=== PATIENT | female | born 1985 | race Two or more races ===

== ENCOUNTER 2020-02-10 14:17 | Emergency (ER) | payer BC ==
[2020-02-10 15:28] LABS: ABSOLUTE EOSINOPHILS # (AUTO) 0.2 10^3/uL (0.0-0.6); ABSOLUTE LYMPHOCYTES (AUTO) 2.5 10^3/uL (0.5-4.7); ABSOLUTE MONOCYTES (AUTO) 0.5 10^3/uL (0.1-1.4); ABSOLUTE NEUT (AUTO) 4.8 10^3/uL (1.7-8.2); BASOPHILS % (AUTO) 0.4 % (0-2); EOSINOPHILS % (AUTO) 2.2 % (0-6); HEMATOCRIT 38.2 % (36.0-47.0); HEMOGLOBIN 12.9 g/dL (12.0-15.5); LYMPHOCYTES % (AUTO) 31.9 % (13-45); MEAN CORPUSCULAR HEMOGLOBIN 30.6 pg (27.0-33.4); MEAN CORPUSCULAR HGB CONC 33.9 g/dL (32.0-36.0); MEAN CORPUSCULAR VOLUME 90 fl (80-97); MONOCYTES % (AUTO) 5.7 % (3-13); PLATELET COUNT 282 10^3/uL (150-450); RED BLOOD COUNT 4.23 10^6/uL (3.72-5.28); RED CELL DISTRIBUTION WIDTH 13.9 % (11.5-14.0); SEGMENTED NEUTROPHILS % (AUTO) 59.8 % (42-78); TOTAL CELLS COUNTED % (AUTO) 100 %
--- NOTE | 2020-02-10 15:35 | ER Document Report ---
ED Extremity Problem, Lower - General Chief Complaint: Leg Pain Stated Complaint: LEG PAIN Time Seen by Provider: 02/10/20 14:35 Notes: 34-year-old female arrives at the emergency department complaining of left leg pain and swelling. Patient is just drove in from [place] this weekend. She is concerned about a blood clot. Stated her mother of a blood clot. Patient denies shortness of breath denies chest pain. Complains of aching burning pain in her leg stated she had just lost a lot of weight and did have varicose veins at the time. The patient denies any redness or heat in the area. No fever no chills. Denies any issues with sores or wounds. No trauma. Denies any abdominal pain. No hematuria or dysuria. Does nights with hemoptysis or gland swelling. - Related Data Allergies/Adverse Reactions: acetaminophen [From Vicodin] Allergy (Verified 02/10/20 14:47) cephalexin Allergy (Verified 02/10/20 14:47) fexofenadine [From Violeta] Allergy (Verified 02/10/20 14:47) hydrocodone [From Vicodin] Allergy (Verified 02/10/20 14:47) Past Medical History - Social History Smoking Status: Never Smoker Frequency of alcohol use: Occasional Drug Abuse: None Family History: None Patient has homicidal ideation: No Pulmonary Medical History: Reports: Hx Asthma Review of Systems - Review of Systems Constitutional: denies: Chills, Fever EENT: No symptoms reported Cardiovascular: No symptoms reported. denies: Chest pain Respiratory: denies: Short of breath Musculoskeletal: Leg swelling Skin: Other - Pain and swelling around varicose veins on left leg -: Yes All other systems reviewed and negative Physical Exam - Vital signs Vitals: Temp 98.3 F 02/10/20 14:42 - Notes Notes: GENERAL_APPEARANCE: well_nourished, alert, cooperative, appears uncomfortable VITALS: reviewed, see vital signs table. HEAD: no_swelling\tenderness on the head. EYES: Sclera anicteric, conjunctiva_clear. NOSE: no_nasal_discharge. MOUTH: (-)decreased moisture. THROAT: no_tonsilar_inflammation, no_airway_obstruction. no_lymphadenopathy NECK: supple, no_neck_tenderness, (-)thyromegaly. BACK: no_back_tenderness. EXTREMITIES: Varicose veins on the lateral surface just below the knee which are irritated slightly warm to touch. No redness no fluctuance. The calf itself is nontender. There is good dorsalis pedis posterior tibial pulses distal. Brisk cap refill to pedal nailbeds. SKIN: warm, dry, good_color, no_rash. MENTAL_STATUS: speech_clear, oriented_X_3, normal_affect, responds_appropriately to questions. Course - Re-evaluation Re-evalutation: 02/10/20 15:34 34-year-old female who just drove in from [place] over the weekend. There is a family history of blood clots but no bleeding or clotting disorders to her knowledge. No history of any trauma. No recent hospitalizations no recent surgeries. Patient denies hormone replacement denies smoking. The patient will have a ultrasound done of her leg. This looks to be more superficial phlebitis due to varicose veins. Doppler to rule out DVT 02/10/20 17:28 Pleura is negative. Likely to some mild phlebitis due to her varicose veins and inflammation. Will place on cephalexin she already has naproxen. Spoke with her about warm compresses and follow-up with primary care. I given her strong pulses distal. Good dorsalis pedis posterior tibial pulses brisk capillary refill no change in temperature compared to the contralateral limb. Nothing to suggest arterial occlusion. DVT is negative on the scan. No redness or heat or anything to suggest cellulitis or abscess. - Vital Signs Vital signs: Temp Pulse Resp BP Pulse Ox 98.3 F 68 16 112/77 100 02/10/20 14:46 02/10/20 14:46 02/10/20 14:46 02/10/20 14:46 02/10/20 14:46 - Laboratory Result Diagrams: 02/10/20 15:14 02/10/20 15:14 Laboratory results interpreted by me: 02/10/20 15:14 Sodium 134.9 L Discharge - Discharge Clinical Impression: Phlebitis Condition: Good Disposition: HOME, SELF-CARE Instructions: Superficial Phlebitis ([facility]) Prescriptions: Sulfamethoxazole/Trimethoprim [Bactrim Ds Tablet] 1 each PO BID #14 tablet
[2020-02-10 15:37] LABS: INTERNATIONAL RATION (INR) 0.98
[2020-02-10 15:38] LABS: PARTIAL THROMBOPLASTIN TIME 25.6 SEC (23.5-35.8)
[2020-02-10 15:52] LABS: ANION GAP 8 (5-19); BLOOD UREA NITROGEN 11 mg/dL (7-20); CALCIUM 9.4 mg/dL (8.4-10.2); CARBON DIOXIDE 27 mmol/L (22-30); CHLORIDE 100 mmol/L (98-107); GLUCOSE 78 mg/dL (75-110); POTASSIUM 4.3 mmol/L (3.6-5.0)
--- NOTE | 2020-02-10 17:04 | RADIOLOGY REPORT (SQ) ---
EXAM DESCRIPTION: VENOUS UNILATERAL LOWER IMAGES COMPLETED DATE/TIME: 02/10/2020 4:54 pm REASON FOR STUDY: Left leg swelling COMPARISON: None. TECHNIQUE: Dynamic and static velasco scale and color images acquired of both lower extremity venous sy stems. Selected spectral images acquired with additional compression and augmentation maneuvers. Imag es stored on PACS. LIMITATIONS: None. FINDINGS: RIGHT LEG COMMON FEMORAL AND FEMORAL: Normal phasicity, compression and augmentation. No visualized echogenic m aterial on velasco scale. No defects on color images. POPLITEAL: Normal compression and augmentation. No visualized echogenic material on velasco scale. No de fects on color images. CALF VESSELS: Normal compression and augmentation. No visualized echogenic material on velasco scale. No defects on color image. GSV AND SSV: Normal compression. No visualized echogenic material on velasco scale. No defects on color images. ANY DEEP VENOUS INSUFFICIENCY: Not evaluated. ANY EVIDENCE OF POPLITEAL CYST: No. OTHER: No other significant finding. LEFT LEG COMMON FEMORAL AND FEMORAL: Normal phasicity, compression and augmentation. No visualized echogenic m aterial on velasco scale. No defects on color images. POPLITEAL: Normal compression and augmentation. No visualized echogenic material on velasco scale. No de fects on color images. CALF VESSELS: Normal compression and augmentation. No visualized echogenic material on velasco scale. No defects on color images. GSV AND SSV: Normal compression. No visualized echogenic material on velasco scale. No defects on color images. ANY DEEP VENOUS INSUFFICIENCY: Not evaluated. ANY EVIDENCE POPLITEAL CYST: No. OTHER: No other significant finding. IMPRESSION: NO EVIDENCE DVT OR SVT IN EITHER LEG. TECHNICAL DOCUMENTATION: JOB ID: [id number] [employer]- All Rights Reserved Reading location - IP/workstation name: [email or web address]
[2020-02-10 18:01] VITALS: BP 112/69
== END 2020-02-10 18:00 | disposition home or self-care (01) ==
LOC: ER 14:17
DX: I80.9 Phlebitis and thrombophlebitis of unspecified site (principal); M79.605 Pain in left leg; M79.89 Other specified soft tissue disorders; Z88.8 Allergy status to other drugs, medicaments and biological substances
CPT/HCPCS: 36415; 80048; 85025; 85610; 85730; 93971; 99283

== ENCOUNTER 2020-02-16 21:00 | Emergency (ER) | payer BC ==
--- NOTE | 2020-02-16 21:09 | ER Document Report ---
ED Medical Screen (RME) - General Stated Complaint: POSSIBLE BLOOD CLOT Time Seen by Provider: 02/16/20 21:05 Mode of Arrival: Ambulatory Information source: Patient Notes: 34-year-old female patient presents the emergency department concern for possible DVT. Patient has no history of DVT. She did drive a [address] last week. She states she started having pain behind her left knee after that with some redness and swelling as well. She was seen here on 02/09 and had a negative venous Doppler ultrasound. Patient reports the pain and swelling have worsened so she wanted to get checked out again. Patient denies any chest pain or shortness of breath. I have greeted and performed a rapid initial assessment of this patient. A comprehensive ED assessment and evaluation of the patient, analysis of test res ults and completion of the medical decision making process will be conducted by additional ED providers. I have specifically instructed the patient or family members with the patient to immediately return to any nursing staff should anything change in the patient's condition or with their chief complaint. - Related Data Allergies/Adverse Reactions: acetaminophen [From Vicodin] Allergy (Verified 02/10/20 14:47) cephalexin Allergy (Verified 02/10/20 14:47) fexofenadine [From Violeta] Allergy (Verified 02/10/20 14:47) hydrocodone [From Vicodin] Allergy (Verified 02/10/20 14:47) Past Medical History Pulmonary Medical History: Reports: Hx Asthma
--- NOTE | 2020-02-16 22:41 | RADIOLOGY REPORT (SQ) ---
EXAM DESCRIPTION: ULTRASOUND- left lower extremity venous Doppler ultrasound CLINICAL HISTORY: Left lower extremity pain and swelling. COMPARISON: February 10, 2020. TECHNIQUE: Escalante scale, color and Doppler sonographic evaluation of the left lower extremity was performed. FINDINGS: Left: There is no evidence of acute/chronic deep venous thrombosis in the left common femoral through proximal calf veins, including the popliteal, peroneal, posterior tibial veins and left greater saphenous vein/common femoral vein junction. Normal color/phasic flow, augmentation, compressibility and lack of filling defects, is demonstrated in these visualized vessels. However, there is evidence of superficial venous thrombosis with noncompressive vasculature in the region of the lateral leg both rostral and caudal to the level of the knee. IMPRESSION: 1. No evidence of deep vein thrombosis in the left lower extremity. 2. Evidence of superficial venous thrombosis involving the left lateral leg.
--- NOTE | 2020-02-16 22:41 | ER Document Report ---
ED Extremity Problem, Lower - General Chief Complaint: Leg Pain Stated Complaint: POSSIBLE BLOOD CLOT Time Seen by Provider: 02/16/20 21:05 Primary Care Provider: MARTI KENYON MD [ACTIVE STAFF] - Follow up in 3-5 days Mode of Arrival: Ambulatory Notes: Patient is a 34-year-old female that comes emergency department for chief complaint of pain to the left outer posterior aspect of the leg at the top of the calf and behind the knee. She states that she had a 14-hour trip in a car from [place] on 02/06/2020, she was seen here after she developed symptoms on 02/06 and she was diagnosed with phlebitis, treated with Bactrim and has been taking naproxen. She states it was red, irritated, and more painful previously and this has significantly improved with resolution of the redness, however the area is refining still operator, seems longer, and she felt a tingling sensation in her leg earlier today that made her concerned. She denies any current numbness. She denies any back injury or symptoms with her back. Patient is on oral contraceptive. She does not smoke, denies history of DVT. She states her grandmother from a pulmonary embolism, she has no primary family members with PE. She takes no daily medications. She denies any other complaints. - Related Data Allergies/Adverse Reactions: acetaminophen [From Vicodin] Allergy (Verified 02/10/20 14:47) cephalexin Allergy (Verified 02/10/20 14:47) fexofenadine [From Violeta] Allergy (Verified 02/10/20 14:47) hydrocodone [From Vicodin] Allergy (Verified 02/10/20 14:47) Past Medical History - General Information source: Patient - Social History Smoking Status: Never Smoker Frequency of alcohol use: None Drug Abuse: None Lives with: Family Family History: None Patient has homicidal ideation: No Pulmonary Medical History: Reports: Hx Asthma Past Surgical History: Reports: Hx Breast Surgery - Immunizations Immunizations up to date: Yes Hx Diphtheria, Pertussis, Tetanus Vaccination: Yes Review of Systems - Review of Systems Constitutional: No symptoms reported EENT: No symptoms reported Cardiovascular: No symptoms reported Respiratory: No symptoms reported Gastrointestinal: No symptoms reported Genitourinary: No symptoms reported Female Genitourinary: No symptoms reported Musculoskeletal: See HPI Skin: No symptoms reported Hematologic/Lymphatic: See HPI Neurological/Psychological: No symptoms reported Physical Exam - Vital signs Vitals: Temp Pulse Resp BP Pulse Ox 98.6 F 73 16 117/66 99 02/16/20 21:05 02/16/20 21:05 02/16/20 21:05 02/16/20 21:05 02/16/20 21:05 - Notes Notes: GENERAL: Alert, interacts well. No acute distress. HEAD: Normocephalic, atraumatic. EYES: Pupils equal, round, and reactive to light. Extraocular movements intact. ENT: Oral mucosa moist, tongue midline. Oropharynx unremarkable. Airway patent. LUNGS: Clear to auscultation bilaterally, no wheezes, rales, or rhonchi. No respiratory distress. Non-tender chest wall. HEART: Regular rate and rhythm. No murmur ABDOMEN: Soft, non-tender. Non-distended. EXTREMITIES: Moves all 4 extremities spontaneously. Normal distal neurovascular exam, no cyanosis. Over the left lateral posterior aspect of the leg at the top of the calf and extending up past the knee into the lateral aspect of the left distal thigh there is an area consistent with varicose vein and probable superficial venous thrombosis. This is palpable and slightly tender but there is no significant erythema, abnormal heat, or other abnormal finding. No streaking away from the area. Patient is able to ambulate without difficulty. BACK: no cervical, thoracic, lumbar midline tenderness. No saddle anesthesia, normal distal neurovascular exam. Moves all extremities in full range of motion. NEUROLOGICAL: Alert and oriented x3. Normal speech. Cranial nerves II through XII grossly intact. Strength 5/5 in all extremities. PSYCH: Normal affect, normal mood. SKIN: Warm, dry, normal turgor. No rashes or lesions noted. Course - Re-evaluation Re-evalutation: Venous Doppler ultrasound does indicate superficial venous thrombosis in the left lateral leg, no DVT is noted. However this has worsened in length per patient, the area is somewhat impressive in length. Fortunately erythema has resolved per patient and I do not see any evidence of infection on exam, patient is afebrile. Patient completes antibiotic tomorrow. I discussed with Dr. Allen. Recommendation is to start patient on oral anticoagulation given the size and worsening condition. I discussed this at length, patient is very agreeable with this plan, she states she will follow-up without fail with primary care and hematology. Discussed precautions in regards to blood thinners including potential fall injuries and bleeding risks. Discussed return precautions. Patient states understanding and agreement. Stable and well- appearing at time of discharge. - Vital Signs Vital signs: Temp Pulse Resp BP Pulse Ox 98.6 F 73 16 117/66 99 02/16/20 21:05 02/16/20 21:05 02/16/20 21:05 02/16/20 21:05 02/16/20 21:05 Discharge - Discharge Clinical Impression: Superficial vein thrombosis Condition: Stable Disposition: HOME, SELF-CARE Additional Instructions: Your ultrasound shows superficial venous thrombosis in your left lateral leg. There is no deep vein thrombosis. However because this is getting longer and because of your symptoms we have decided to treat this. Take the blood thinner as prescribed, please call and follow-up with your provider/the referral listed for additional management of this. Return if you worsen including developing severe swelling, developing redness, severe worsening pain, spiking fever, difficulty breathing, or any other concerning symptoms. Prescriptions: Rivaroxaban [Xarelto 15 mg Tablet] 15 mg PO DAILY 21 Days #42 tablet Referrals: MARTI KENYON MD [ACTIVE STAFF] - Follow up in 3-5 days
[2020-02-16 23:35] VITALS: BP 109/58
== END 2020-02-16 23:36 | disposition home or self-care (01) ==
LOC: ER 21:00
DX: I82.812 Embolism and thrombosis of superficial veins of left lower extremity (principal); J45.909 Unspecified asthma, uncomplicated; Z79.3 Long term (current) use of hormonal contraceptives; Z82.49 Family history of ischemic heart disease and other diseases of the circulatory system; Z88.8 Allergy status to other drugs, medicaments and biological substances; Z88.1 Allergy status to other antibiotic agents; Z88.6 Allergy status to analgesic agent; Z88.5 Allergy status to narcotic agent
CPT/HCPCS: 93971; 99283